=== PATIENT | female | born 2000 | race Caucasian/White ===

== ENCOUNTER 2024-02-28 23:22 | Emergency (ER) | payer OTHER, SELFPAY ==
[2024-02-28 23:35] VITALS: BP 114/70; PULSE 82; RESP 18; TEMP 36.9; O2SAT 97; BMI 37.1
--- NOTE | 2024-02-29 | CRLHL7_ITS ---
For Patients: As a result of the Cures Act, medical imaging exams and procedure reports are released immediately into your electronic medical record. You may view this report before your referring provider. If you have questions, please contact your health care provider. INDICATION: Cough. TECHNIQUE: Chest radiographs, 2 views. COMPARISON: None. FINDINGS: Cardiovascular/Mediastinum: Normal heart size. Unremarkable. Lungs: No focal consolidation. Airways: Trachea remains midline. Pleura: No pleural effusions or pneumothorax. Bones: No acute osseous abnormalities. Upper abdomen: Unremarkable. IMPRESSION: No acute cardiopulmonary process. Dictated by Mark Coley MD @ 02/29/2024 12:19:35 AM (Electronically Signed)
[2024-02-29 00:17] LABS: Strep A DNA Probe* NOT DETECTED (Not Detectd)
--- NOTE | 2024-02-29 00:28 | ED_ITS ---
HPI - General Adult General Chief complaint: Cough Stated complaint: chest pain, deep cough Time Seen by Provider: 02/29/24 00:28 Source: patient Mode of arrival: ambulatory Limitations: no limitations History of Present Illness HPI narrative: 23-year-old female presents to the ED with 2 days of cough. No fever. Feels a little short of breath. Chest congestion, slightly itchy sore throat and postnasal drip. Has tried [id number] allergy medication and cough drops with no significant improvement in symptoms. Not immunocompromised, no history of chronic lung disease. No pertinent travel, nonsmoker. Has not tried any other interventions to feel better. Eating and drinking normally. Not anticoagulated. Chest x-ray, strep and viral swabs ordered prior to my arrival for my shift. Past medical history notable for obesity, anxiety. Medications reviewed. She also takes a DLP 1 inhibitor which is not listed. ROS notable for the HEENT symptoms and chest symptoms as above, otherwise denies times 12 systems. Related Data Home Medications ?Medication ?Instructions ?Recorded ?Confirmed bupropion HCl PO 02/28/24 citalopram 30 mg capsule 30 mg PO DAILY 02/28/24 02/28/24 levothyroxine .ROUTE 02/28/24 norethindrone-e.estradiol-iron .ROUTE 02/28/24 Previous Rx's ?Medication ?Instructions ?Recorded albuterol sulfate 90 mcg/actuation 2 puff inhalation Q4-6H PRN 02/29/24 aerosol inhaler shortness of breath or wheezing #8.5 grams benzonatate 200 mg capsule 200 mg PO TID PRN cough #14 caps 02/29/24 Allergies Allergy/AdvReac Type Severity Reaction Status Date / Time No Known Drug Allergies Allergy Verified 02/28/24 23:41 Exam Const: Vital Signs, click to edit/add: Vital Signs - 24 hr 02/28/24 23:35 Temperature 98.5 F Pulse Rate [Pulse Oximeter] 82 Respiratory Rate 18 Blood Pressure [Ri ght Upper Arm] 114/70 Pulse Oximetry 97 Documenting provider has reviewed patient's vital signs: yes Common normals: no apparent distress General appearance: cooperative and comfortable HENMT: Common normals: normocephalic Head and scalp: normocephalic Face and sinus: normal facial exam Other: Nose with some mild clear mucus rhinorrhea. Posterior pharynx with clear mucus cobblestoning postnasal drip, no erythema or exudate. Normal dentition, oral mucosa, tongue and palate. Eye: Common normals: conjunctivae normal General eye: normal appearance of both eyes Conjunctiva: conjunctiva(e) normal Neck & C-Spine: Common normals: full ROM and no lymphadenopathy General: normal visual inspection Resp: Common normals: normal respiratory effort, no use of accessory muscles and clear to auscultation bilaterally Effort & inspection: able to speak in complete sentences Auscultation: clear to auscultation bilaterally Cardio: Common normals: regular rate, regular rhythm, S1 normal heart sound, S2 normal heart sound and no murmurs Rate: regular rate Rhythm: regular rhythm Heart sounds: S1 normal and S2 normal Extremity: Common normals: normal to inspection and normal capillary refill Psych: Attitude: calm Activity/motor behavior: appropriate eye contact Mood and affect: euthymic mood Skin: Common normals: no rashes or lesions noted General skin exam: no rashes or lesions noted Course Course ED Course: 23-year-old female with 2 days of upper respiratory infection symptoms. No tachycardia, hypoxia, tachypnea or symptoms of severe illness. Chest x-ray and viral swabs were ordered prior to my arrival and these are reviewed and are also reassuring. Symptomatic treatment only recommended. Counseled patient that sym ptoms will last 2-3 weeks. She is able to return to work or school at this time as long as she does not have severe symptoms. Prescriptions for Tessalon Perles and albuterol given to use p.r.n.. Primary care follow-up if not improving in 2-3 weeks. Alarm symptoms reviewed that would warrant ED presentation. Written instructions provided. Vital Signs Vital signs: Initial Vital Signs Temperature 98.5 F 02/28/24 23:35 Temperature Source Temporal Artery Scan 02/28/24 23:35 Pulse Rate 82 02/28/24 23:35 Respiratory Rate 18 02/28/24 23:35 Blood Pressure 114/70 02/28/24 23:35 Blood Pressure Mean 84 02/28/24 23:35 Blood Pressure Position Sitting 02/28/24 23:35 Pulse Oximetry 97 02/28/24 23:35 Vital Signs Temperature 98.5 F 02/28/24 23:35 Pulse Rate 82 02/28/24 23:35 Respiratory Rate 18 02/28/24 23:35 Blood Pressure 114/70 02/28/24 23:35 Pulse Oximetry 97 02/28/24 23:35 Temperature 98.5 F 02/28/24 23:35 Pulse Rate 82 02/28/24 23:35 Respiratory Rate 18 02/28/24 23:35 Blood Pressure 114/70 02/28/24 23:35 Pulse Oximetry 97 02/28/24 23:35 Medical Decision Making Lab Data Lab results reviewed: Yes I reviewed the patient's lab results Lab results narrative: Negative, as expected. Labs: Lab Results 02/28/24 Range/Units 23:45 SARS-CoV-2 (PCR) Negative SARS-CoV-2 (Negative) Influenza Type A (PCR) Negative PCR FLU A (Negative) Influenza Type B (PCR) Negative PCR FLU B (Negative) RSV (PCR) Negative PCR RSV (Negative) Group A Strep DNA NOT DETECTED (Not Detectd) Imaging Data Chest x-ray: Attestation: I have reviewed the pertinent imaging results. My impression: Normal chest x-ray, no focal consolidation, pulmonary edema, effusion or other abnormality Radiologist's impression: IMPRESSION: No acute cardiopulmonary process. Dictated by Mark Coley MD @ 02/29/2024 12:19:35 AM Discharge Plan Discharge Clinical Impression: Chest cold Patient Disposition: Home, Self-Care Condition: Stable Instructions: Acute Bronchitis (ED) Additional Instructions: As we discussed, your chest x-ray looks normal. Your lung exam is reassuring. Here swabs for influenza, COVID, RSV and strep are negative. Your oxygen levels look great. Her illness seems to be caused by a virus causing a chest cold. These tend to take about 3 weeks to go away. There are no signs of dangerous complications. Antibiotics will not be helpful. There are no signs of significant wheezing therefore steroids or other similar medications are unl ikely to be helpful and will definitely cause side effects with your other medications. I have given her prescription for Tessalon Perles, a cough medication that about half of people find helpful. It is okay to discontinue if they do not work for you. Have also prescribed an inhaler that you may use to help clear the mucus and chest congestion. You are correct that the [id number] medications are not typically very helpful. I would continue taking the allergy medication as it will help lessen the postnasal drip somewhat. I would also recommend that you try Mucinex twice daily to help loosen the cough. If things have not improved in 2 more weeks, I would recommend primary care follow-up. He should come to emergency department if you are severely short of breath, coughing up blood, have high fevers over 100.4 for more than a couple of days and or signs of severe illness. You may return to work or school as usual immediately. Activity Level: No Restrictions Discharge Diet: Regular Prescriptions: New benzonatate 200 mg capsule 200 mg PO TID PRN (Reason: cough) Qty: 14 0RF albuterol sulfate 90 mcg/actuation HFA aerosol inhaler 2 puff inhalation Q4-6H PRN (Reason: shortness of breath or wheezing) Qty: 8.5 0RF No Action norethindrone-e.estradiol-iron [ (28)] .ROUTE citalopram 30 mg capsule 30 mg PO DAILY bupropion HCl [Wellbutrin] PO levothyroxine .ROUTE Stand Alone Forms: [employer] Info Instructions
[2024-02-29 00:29] LABS: PCR FLU A Negative PCR FLU A (Negative); PCR FLU B Negative PCR FLU B (Negative); PCR RSV Negative PCR RSV (Negative); SARS PCR* Negative SARS-CoV-2 (Negative)
== END 2024-02-29 00:41 | disposition home or self-care (01) ==
LOC: ED 02-29 00:37
PROVIDERS: Emergency Provider Family Medicine; PCP Physician Assistant
DX: J00 Acute nasopharyngitis [common cold] (principal)
CPT/HCPCS: 71046; 87631; 87651; 99283; 99284